=== PATIENT | female | born 1965 | race Caucasian/White ===

== ENCOUNTER → 2016-10-06 | Outpatient (CLI) | payer OTHER ==
[~2016-10-06] VITALS: Ht 167.6 cm; Wt 60.3 kg
[~2016-10-06] MED LIST: CELEBREX 200 M200 MG PO; CENTRUM TABLET1 TAB PO; CIPROFLOXACIN500 M3 PO; CRANBERRY 4001 EAC1 PO; GABAPENTIN100 MG PO; HYDROCODON-ACE1 EAC5 PO; KRILL OIL 1,001 EAC1 PO; LEVSIN SL; MULTIVITAMINS PO; OXYCODONE-APAP1 EAC6 PO; PERCOCET 5-3251 EACH PO; PROZAC20 MG PO; TRAMADOL 50 MG50 MG PO; VICODIN 5-5001 EACH PO; [UNRECOGNIZED DRUG - OTHER] PO
--- NOTE | ~2016-10-06 | HPC ---
[facility] [place] [address] [place] [address] PAIN MANAGEMENT CONSULTATION Name: AMAURY OWENS Room #: REG [facility].#: [id number] Admission: 10/06/16 Attend Phys: Amilcar Soares MD Discharge: Date of : 61 Report #: [id number] THIS REPORT FOR: //name// CC: Levon Soares DATE OF REGISTRATION: 10/06/2016. Followup visit for L3-L4 lumbar radiculopathy. HISTORY OF PRESENT ILLNESS: The patient returns to pain clinic today and would like another epidural injection. It has been almost now 10 months since her last injection performed with a transforaminal approach. She generally gets good relief and use this as a tool to help with chronic leg pain on the left. Pain radiates from her back to her groin down in the left anterior thigh and at times as far as the foot following L4 distribution. Most pain follows L3 where she has a degenerative disk. In addition to that intermittent injection provided with medication under terms of an opioid agreement. Her medication is oxycodone 7.5/325, which she has been on 1 tablet 3 times a day as needed for severe pain for many years under terms of our written agreement. I have reviewed the important issues regarding these opioids on multiple occasions and today we discussed them briefly again. Pain today is a 2, but on times can be as high as 8-9/10. MEDICATIONS: Include oxycodone, calcium, fluoxetine, multivitamins, Krill oil. ALLERGIES: SHE HAS SLIGHT ALLERGY TO IODINATED CONTRAST MATERIAL NOT LISTED THAT WE USED IT ON EVERY INJECTION. SHE DOES NOT LIKE THE FEELING OF MORPHINE. PAST MEDICAL HISTORY: Remarkable kidney stones. PHYSICAL EXAMINATION: GENERAL: She is a 51-year-old pleasant, alert and oriented, without signs of overmedication, disorient or depression. EXTREMITIES: She moves from sitting to standing position, ambulates without difficulty. Positive straight leg raising is noted at the left involving the L3-L4 distribution. Sensation is diminished in that location as well. There was no focal weakness. IMPRESSION: Lumbar radiculopathy, L3-L4. DIAGNOSIS: Lumbar radiculopathy on the left L3-L4. PROCEDURE: L3-L4 transforaminal epidural injection under fluoroscopic guidance. [address] [address] PAIN MANAGEMENT CONSULTATION Name: AMAURY OWENS Room #: REG [facility] [place]#: [id number] Admission: 10/06/16 Attend Phys: Amilcar Soares MD Discharge: Date of : 61 Report #: [id number] PROCEDURE IN DETAIL: She was taken to the fluoroscopic suite. She was placed prone, skin prepped with ChloraPrep, skin anesthetized over the L3-L4 neural foramen. Using triplanar fluoroscopic views, I advanced the needle into the neural foramen. After negative aspiration, I injected gently 1 mL of Omnipaque with good spread of dye observed into the neural foramen along the L3 nerve root was followed by 3 mL of 1% lidocaine mixed with 80 mg of triamcinolone. She tolerated the procedure well and was observed for 45 minutes and discharged. Followup visit planned as needed. Before she was discharged, I also provided her with 3 months of medications, oxycodone 7.5/325 one tablet t.i.d. as needed #90 tablets. Her opioid contract was reviewed. Followup visit is scheduled in 3 months. By: [id number] Amilcar Soares MD /nt
[2016-10-06 08:06] VITALS: BP 127/76
== END ==
LOC: PAIN 09-16 10:35
DX: M54.16 Radiculopathy, lumbar region (principal)

== ENCOUNTER → 2017-01-05 | Outpatient (CLI) | payer OTHER ==
[~2017-01-05] VITALS: Ht 165.1 cm; Wt 62.0 kg
--- NOTE | ~2017-01-05 | HPC ---
[facility] [place] [address] PAIN MANAGEMENT CONSULTATION Name: AMAURY OWENS Room #: REG [facility].#: [id number] Admission: 01/05/17 Attend Phys: Amilcar Soares MD Discharge: Date of : 61 Report #: [id number] THIS REPORT FOR: //name// CC: Levon Soares DATE OF SERVICE: 01/05/2017 Followup visit for chronic low back pain with radiculopathy. The patient is here in clinic today for renewal of her medication. We are going to hold off on an injection at this time. She is taking oxycodone 7.5 mg 3 times daily and has been on an opioid agreement through our clinic for nearly a decade. She has never shown any signs of addiction. She is grateful for the pain relief that she receives from her injections and from her medication. She is, however, becoming a little frustrated with the fact that her pain interferes with some of activities of daily living. She is able to work, but things such as playing with her children, getting out for a long walk are definitely harder. Her underlying pain may be related to synovial cyst or to neural foraminal stenosis. We have not done an MRI in some time and we talked about repeating that today. Other treatment options exists, which include surgical decompression. If there is a fixed lesion, a new MRI would be necessary to identify that. We have also talked about spinal cord stimulation on several occasions. She would like in the fall to consider further diagnostic workup and I have given her information once again on spinal cord stimulation. Urine drug screen was performed within the last 18 months and was appropriate for medications prescribed. PHYSICAL EXAMINATION: She is a sammi 51-year-old pleasant, alert and oriented, without signs of depression, anxiety or overmedication. She appears fit. She moves easily from sitting to standing position. She ambulates without antalgic features. Blood pressure is 105/72, heart rate is 82, her BMI is 22.7. Mild tenderness across her back and leg raising is positive on the left leg that follows an L3-L4 distribution. IMPRESSION: Lumbar radiculopathy. RECOMMENDATION: Continue medications under terms of our agreement. [facility] [address] [place] [address] PAIN MANAGEMENT CONSULTATION Name: AMAURY OWENS Room #: REG [facility].#: [id number] Admission: 01/05/17 Attend Phys: Amilcar Soares MD Discharge: Date of : 61 Report #: [id number] of safeguarding all medications was once again stressed and we reviewed the opioid crisis in [place] and difference between addiction and dependence. By: [id number] Amilcar Soares MD /nt
[2017-01-05 14:20] VITALS: BP 105/72
== END ==
LOC: PAIN 07:27
DX: M54.16 Radiculopathy, lumbar region (principal)

== ENCOUNTER → 2017-04-06 | Outpatient (CLI) | payer OTHER ==
[~2017-04-06] VITALS: Ht 162.6 cm; Wt 62.1 kg
--- NOTE | ~2017-04-06 | HPC ---
[facility] [address] [place] [address] PAIN MANAGEMENT CONSULTATION Name: AMAURY OWENS Room #: REG [facility]#: [id number] Admission: 04/06/17 Attend Phys: Amilcar Soares MD Discharge: Date of : 61 Report #: [id number] THIS REPORT FOR: //name// CC: Carmine Soares DATE OF SERVICE: 04/06/2017 Followup visit for left lumbar radiculopathy. The patient returns to Pain Clinic today for another epidural injection and renewal of pain medication. Her MRI is not terrible, but she has degenerative disk disease at L4-L5 and L3-L4 and periodically the radiculopathy becomes so severe that she needs an epidural injection. She has been managing her pain very effectively with a small amount of oxycodone 7.5/325 taken under terms of written opioid agreement. She has had buccal and urine drug screens that show the appropriate use of medication. She understands the importance of safeguarding all medications. She denies any side effects. 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 Today, she reports her pain intensity levels is about a 6 at its most intense and it is 4 today. Pain is worse with standing and walking and it radiates down into the left leg in the L4 and L3 distribution. She describes this as an electrical burning sensation. PHYSICAL EXAMINATION: She is pleasant, attractive 52-year-old pleasant, alert and oriented, moves easily from sitting to standing position, ambulates; however, with antalgic features. Pain is located in the left buttock and radiating down the leg as she walks. Blood pressure is 126/80, heart rate 67, respirations 14 and BMI is 23.5. She has tenderness across the low back. There is some asymmetry in the reflexes tested today. Left patellar reflex is diminished in comparison to the right. Straight leg raising reproduces pain into the L4 distribution as much as the L3 today. IMPRESSION: Lumbar radiculopathy, L3-L4. PROCEDURE: Left L4-L5 transforaminal epidural injection under fluoroscopic guidance. PROCEDURE: She was taken to the fluoroscopic suite for treatment. She was placed prone and skin prepped with ChloraPrep. Skin anesthetized over the L4-L5 neural foramen. Using triplanar fluoroscopic views, I advanced the needle nicely into the neural foramen and 0.25 mL of Omnipaque was injected to [facility] [address] [place] [address] PAIN MANAGEMENT CONSULTATION Name: AMAURY OWENS Room #: REG [facility]#: [id number] Admission: 04/06/17 Attend Phys: Amilcar Soares MD Discharge: Date of : 61 Report #: [id number] demonstrate spread nicely into the epidural space. This was followed then by 3 mL of 1% lidocaine mixed with 80 mg of triamcinolone. She tolerated the procedure well and was taken to recovery room for observation and followup visit as planned on an as needed basis. Medications provided under terms of the agreement are oxycodone/acetaminophen 7.5/325 #90, one tablet t.i.d. as needed for pain. Renewal prescriptions provided at 4 and 8 weeks. By: [id number] Amilcar Soares MD /nt
[2017-04-06 14:22] VITALS: BP 126/80
== END | disposition home or self-care (01) ==
LOC: PAIN 07:59
DX: M54.16 Radiculopathy, lumbar region (principal); G89.29 Other chronic pain; Z79.891 Long term (current) use of opiate analgesic; Z88.6 Allergy status to analgesic agent; Z91.041 Radiographic dye allergy status

== ENCOUNTER → 2017-06-29 | Outpatient (CLI) | payer OTHER ==
[~2017-06-29] VITALS: Ht 162.6 cm; Wt 61.6 kg
--- NOTE | ~2017-06-29 | HPC ---
[facility] [place] [address] PAIN MANAGEMENT CONSULTATION Name: AMAURY OWENS Room #: REG [facility].#: [id number] Admission: 06/29/17 Attend Phys: Amilcar Soares MD Discharge: Date of : 61 Report #: [id number] THIS REPORT FOR: //name// CC: Carmine Soares DATE OF SERVICE: 06/29/2017 Follow up visit for low back pain with radiculopathy. The patient returns to Pain Clinic today for a quick visit. She is doing okay, although her functional scores are pretty high. Her pain interferes with mood, 8/10; interferes with enjoyment of life at 7-8/10 and relationships with others at 7-8/10. Her total impacted pain score is 46/70, which is really quite high. She says she would like to manage every day and increase her activities and do enjoyable activities. She is leaving today to go see one of her grandchildren play basketball in [place]. 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 She is at low risk of addiction. MEDICATIONS: Reviewed and reconciled. She uses oxycodone 7.5/325 three times daily to help manage low back pain and radiculopathy and has periodic epidural injections. I made her remember her MME today and a morphine milligram equivalent for her is roughly 30. Plan is for her to follow up in our Pain Clinic again in 3 months. I have released her prescriptions. Recent screening was performed within the last 18 months and we will continue to monitor carefully. She understands our opioid agreement and understands the importance of safeguarding medications. Follow up visit planned in 3 months. <ELECTRONICALLY SIGNED> By: Amilcar Soares MD 07/19/17 [id number] Amilcar Soares MD /nt
[2017-06-29 14:10] VITALS: BP 115/73
== END ==
LOC: PAIN 06:57
DX: M54.16 Radiculopathy, lumbar region (principal)

== ENCOUNTER → 2017-09-25 | Outpatient (CLI) | payer OTHER ==
[~2017-09-25] VITALS: Ht 165.1 cm; Wt 59.4 kg
--- NOTE | ~2017-09-25 | HPC ---
[facility] [place] [address] PAIN MANAGEMENT CONSULTATION Name: AMAURY OWENS Room #: REG [facility].#: [id number] Admission: 09/25/17 Attend Phys: Amilcar Soares MD Discharge: Date of : 61 Report #: [id number] THIS REPORT FOR: //name// CC: Carmine Soares DATE OF SERVICE: 09/25/2017 Followup visit for chronic low back pain with radiculopathy. The patient returns today for renewal of medication. She was last seen in June. She remains on a stable dose of oxycodone 7.5/325 three tablets a day. She works at a very long stressful job at the [employer]. She definitely notices an increase in her pain with her stress. She remains fit and is active in wellness activities including walking and proper diet. She denies use of tobacco or alcohol. She does her best to avoid stressful situations where she can, so I think she is working hard to try and manage her pain with nonmedicinal activities. Her goals are to enjoy activities daily without thinking about her constant leg pain. PHYSICAL EXAMINATION: GENERAL: Pleasant attractive female. VITAL SIGNS: Blood pressure is 126/75, heart rate 78. BMI is 21.8. She has positive straight leg raising on the left consistent with radiculopathy in the distribution of L3-L4. IMPRESSION: Lumbar radiculopathy. RECOMMENDATIONS: Another discussion today about spinal cord stimulation. Timing on that for her is the lopez. I am glad we waited to this point if the technology continues to improve with MRI safe devices much smaller easier to charge IPG and improvements and positioning and other aspects related to placement of leads. Plan to see her back in the pain clinic in 3 months. For now, she is going to forego any further interventional treatments until necessary. By: [id number] Amilcar Soares MD /nt
[2017-09-25 13:55] VITALS: BP 126/75
== END ==
LOC: PAIN 06:54
DX: M54.16 Radiculopathy, lumbar region (principal)

== ENCOUNTER → 2017-12-21 | Outpatient (CLI) | payer OTHER ==
[~2017-12-21] VITALS: Ht 165.1 cm; Wt 60.2 kg
--- NOTE | ~2017-12-21 | HPC ---
[facility] [address] [place] [address] PAIN MANAGEMENT CONSULTATION Name: AMAURY OWENS Room #: REG [facility].#: [id number] Admission: 12/21/17 Attend Phys: Amilcar Soares MD Discharge: Date of : 61 Report #: [id number] THIS REPORT FOR: //name// CC: URSULA Soares DATE OF SERVICE: 12/21/2017 Followup visit for lumbar radiculopathy, left L3-L4 distribution. The patient is here today, getting ready to go on vacation, and she wants an epidural injection. I have been providing with intermittent injections relatively infrequently dating back almost 12 years. Her pain responds nicely to a transforaminal injection at the L3-L4 transforaminal approach. She reports that the pain intensity is variable and depends lot on activity. She and her go to [place], they would be riding horses. This can sometimes exacerbate her pain. She is hopeful that the pain relief, which she received from the epidural will allow her to have a much better vacation. Well-deserved. 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 I provided with medications in terms of written opioid agreement. She takes oxycodone 7.5/325 three times a day and tramadol 3 times a day as well, as needed for severe pain. She tries to use the lowest effective dose. With the pain control is good, she is able to shorten her medications. Her last prescriptions were provided on 09/25/2017. I will renew them today under terms of our agreement. She safeguards medications carefully as she should do to prevent risk of diversion. We talked a lot about the role that the patient's physicians, pharmaceutical companies have played in development of the opioid crisis in [place]. She is attentive to this. PHYSICAL EXAMINATION: She is pleasant, alert and oriented without any signs of depression, anxiety or overmedication. She is very fit with a BMI of 22.1. Blood pressure is 106/70, heart rate 78, respirations 18. She walks with a slight antalgic gait. She has some pain with forward flexion and extension. She has straight leg raising discomfort on the left in the L3-L4 distribution. IMPRESSION: Chronic low back pain with radiculopathy, has been very responsive to infrequent, but helpful epidural injections using an L3-L4 transforaminal approach. PROCEDURE: Epidural steroid injection, transforaminal approach and renewal of medication under terms of our agreement. DESCRIPTION OF PROCEDURE: She was taken to fluoroscopic suite, placed prone, [place] [address] PAIN MANAGEMENT CONSULTATION Name: AMAURY OWENS [id number] Admission: 12/21/17 Attend Phys: Amilcar Soares MD Discharge: Date of : 61 Report #: [id number] skin prepped with ChloraPrep. Skin anesthetized with left L4-L5 neural foramen. Using triplanar fluoroscopic guidance, the needle was advanced into the position and 1 mL of Omnipaque was well inside the epidural space with good spread. It was followed then by 3 mL of 0.5% lidocaine mixed with 80 mg triamcinolone. She tolerated the procedure well and was observed for 45 minutes and discharged. Followup visit planned as needed in 3-4 months for medication management and epidural injections as necessary. This is her second epidural injection in this calendar year. By: [id number] Amilcar Soares MD /nt
[2017-12-21 13:50] VITALS: BP 106/70
== END | disposition home or self-care (01) ==
LOC: PAIN 06:41
DX: M54.16 Radiculopathy, lumbar region (principal); G89.29 Other chronic pain

== ENCOUNTER → 2018-03-19 | Outpatient (CLI) | payer OTHER ==
[~2018-03-19] VITALS: Ht 165.1 cm; Wt 60.1 kg
--- NOTE | ~2018-03-19 | HPC ---
[facility] [place] [address] PAIN MANAGEMENT CONSULTATION Name: AMAURY OWENS Room #: REG [facility].#: [id number] Admission: 03/19/18 Attend Phys: Amilcar Soares MD Discharge: Date of : 61 Report #: [id number] THIS REPORT FOR: //name// CC: Carmine Soares REASON FOR CONSULTATION: Followup for lumbar radiculopathy on the left L3-L4 distribution, chronic, management of long-term low dose opioid therapy. HISTORY OF PRESENT ILLNESS: The patient is a longstanding patient of our clinic who has managed her lumbar radicular pain conservatively with intermittent injections and medication for over a decade. 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 Her impact pain scores have been modified by her medication favorably. She is at low risk for any sort of addiction. She has been stable and her dose of medication. She uses oxycodone 7.5 three times daily and typically uses 3 doses every day. In the past, she has also used tramadol to supplement, but uses this less frequently. She denies side effects. She feels that the medications have played a huge role in allowing her to continue working and remain functional. She is fortunate at this point at age of 53, she is able to retire. She has worked hard. She would like to spend more time with family and grandchildren. I think this is an excellent opportunity for her and I support her move. PHYSICAL EXAMINATION: GENERAL: Today, she is attractive, well dressed, well groomed. VITAL SIGNS: 5 feet 5, 132, BMI of 22.0. VITAL SIGNS: Blood pressure 117/63, heart rate 75, respirations 16. Pain intensity is 6/10. She walks easily without antalgic features. IMPRESSION: Chronic intractable low back pain. She has had chronic radicular symptoms, which have been well managed with her opioid medication. Her current MME is around 30. She understands all of the important issues of safeguarding medication, as this has been reinforced at each visit as we did today, particularly with younger family members in the home. She will do so. I plan to continue seeing her under terms of our agreement roughly every 3 months. Injections will be performed at her discretion and need. They have always been helpful when needed. By: [id number] Amilcar Soares MD /nt
[2018-03-19 09:47] VITALS: BP 117/63
== END ==
LOC: PAIN 08:07
DX: G89.29 Other chronic pain (principal); M79.672 Pain in left foot; R10.32 Left lower quadrant pain; M19.90 Unspecified osteoarthritis, unspecified site; Z79.899 Other long term (current) drug therapy; Z79.891 Long term (current) use of opiate analgesic

== ENCOUNTER → 2018-06-11 | Outpatient (CLI) | payer OTHER ==
[~2018-06-11] VITALS: Ht 165.1 cm; Wt 61.5 kg
--- NOTE | ~2018-06-11 | HPC ---
[facility] [place] [address] PAIN MANAGEMENT CONSULTATION Name: AMAURY OWENS Room #: REG [facility].#: [id number] Admission: 06/11/18 Attend Phys: Amilcar Soares MD Discharge: Date of : 61 Report #: [id number] THIS REPORT FOR: //name// CC: Carmine Soares DATE OF SERVICE: 06/11/2018 CHIEF COMPLAINT: Followup visit for chronic lumbar radiculopathy and medication management. HISTORY OF PRESENT ILLNESS: The patient is here today for renewal of pain medication. She has been on longstanding opioid agreement and is grateful for the pain relief that it provides. She takes oxycodone 7.5/325 three times a day for a total of 22.5 mg of oxycodone or roughly 35 morphine milligram equivalents. She has had no misuse or abuse events. No red flags on the chart. I have checked her [employer] information. She fills her medications in [place]. There have been no unexpected entries on the [employer] prescription drug monitoring program. She is a bit anxious. She has 2 upcoming events for family members. Her is hospitalized with an infection following prostate biopsies. He is febrile in the hospital with a temperature of 103 and bacteremic. Her son-in-law at the age of 38 is going to undergo heart surgery for the fourth time in his life, he has born with congenital abnormalities. These both increased some stress for her. Overall, though she controlled her pain well with medication and activities. She says without the pain medication to help, she would not be able to exercise and keep fit. This is one of the main goals of providing medication so that she can continue to help manage her day-to-day activities more effectively with less discomfort. She is at low risk for addiction by the opioid risk tool. PHYSICAL EXAMINATION: VITAL SIGNS: Attractive 53-year-old, blood pressure 131/90, heart rate 79, 5 feet 5 inches, 135 pounds, BMI is 22.6. MUSCULOSKELETAL: She moves easily and ambulates with mild discomfort. She has straight leg raising discomfort on the left consistent with an L3 radiculopathy. IMPRESSION: Chronic low back pain with L3 radicular pain. RECOMMENDATIONS: Renew medication under terms of written agreement. She will safeguard her medications as discussed in each visit[place] [address] PAIN MANAGEMENT CONSULTATION Name: AMAURY OWENS Room #: REG [facility]#: [id number] Admission: 06/11/18 Attend Phys: Amilcar Soares MD Discharge: Date of : 61 Report #: [id number] medication were provided. A urine drug testing will be performed in the future at my discretion. By: [id number] Amilcar Soares MD /nt
[2018-06-11 09:46] VITALS: BP 131/90
--- NOTE | 2018-06-11 10:07 | NUR ---
Pain Clinic Assessment: 1. History of Osteoarthritis: YES History of Rheumatoid Arthritis: NO 2. Height: 5 ft. 5 in. 165.1 cm. Weight: 135.6 lb. oz. 61.508 kg. Patient's BMI: 22.6 3. Vital Signs: BP: 131/90 Pulse: 79 Resp: 14 Temp: 02 Sat: 100 ECG Mon: 4. Pain Intensity: 3 5. Fall Risk: Dizziness: N Needs help standing or walking: N Fallen in the last 3 months: N Fall risk comments: 6. Patient on Blood Thinner: None 7. History of Hypertension: N 8. Opioid Therapy greater than 6 weeks: Y Opiate Contract Signed: 12/14/15 9. Risk Assessment Tool Provided: LOW RISK 05/24 10. Functional Assessment Tool: 11. Recreational Drug Use: Never Drug Type: Tobacco Use: Never Smoker Tobacco Type: Amount or Packs/day: How Many Years: Alcohol Use: No Frequency: Quant:
== END ==
LOC: PAIN 07:12
DX: M54.16 Radiculopathy, lumbar region (principal); G89.29 Other chronic pain

== ENCOUNTER → 2018-09-13 | Outpatient (CLI) | payer OTHER ==
[~2018-09-13] VITALS: Ht 165.1 cm; Wt 61.3 kg
--- NOTE | ~2018-09-13 | HPC ---
[facility] [place] [address] PAIN MANAGEMENT CONSULTATION Name: AMAURY OWENS Room #: REG [facility].#: [id number] Admission: 09/13/18 ������������������ Attend Phys: Amilcar Soares MD Discharge: ������������������ Date of : 61 Report #: [id number] THIS REPORT FOR: //name// CC: Carmine Soares DATE OF SERVICE: 09/13/2018 Followup visit for chronic low back pain with radiculopathy, left L3-L4 distribution. The patient returns to the pain clinic today with significant increase in pain radiating down her left leg. She has responded favorably to epidural injections performed intermittently over a number of years. Maximum number of injections per year has been roughly 3. She is here today for repeat injection. Pain score is an 8/10. It is worse with standing and weightbearing. With a sitting position with her leg in extension, she scores her pain at 5. She is 5 feet 5 inches and 135 pounds. BMI is 22.5. She has positive straight leg raising on the left. No sensation loss is noted. She has an antalgic gait, but there is no weakness. She is not a fall risk. IMPRESSION: Chronic low back pain with radiculopathy L3 distribution. RECOMMENDATIONS: Repeat left L3-L4 transforaminal epidural injection under fluoroscopic guidance. PROCEDURE: She was taken to fluoroscopic suite for the procedure, placed prone, skin prepped with ChloraPrep. Skin was anesthetized over the L3-L4 neural foramen. Using triplanar fluoroscopic views, I advanced the needle into the neural foramen. No blood or CSF was aspirated. 1 mL containing half Omnipaque and half 1% lidocaine was injected and good epidurogram achieved. It was then followed by 3 mL of 0.5% lidocaine and 80 mg of triamcinolone. She tolerated the procedure well. She was observed for 45 minutes and discharged. Follow up as needed. ��������������������������������������������� ���������������������������������������� By: ��������������������������������������������� [id number] Amilcar Soares MD /nt
[2018-09-13 14:26] VITALS: BP 106/69
--- NOTE | 2018-09-13 14:48 | NUR ---
Pain Clinic Assessment: 1. History of Osteoarthritis: YES History of Rheumatoid Arthritis: NO 2. Height: 5 ft. 5 in. 165.1 cm. Weight: 135.2 lb. oz. 61.326 kg. Patient's BMI: 22.5 3. Vital Signs: BP: 106/69 Pulse: 76 Resp: 14 Temp: 02 Sat: 100 ECG Mon: 4. Pain Intensity: 5 5. Fall Risk: Dizziness: N Needs help standing or walking: N Fallen in the last 3 months: N Fall risk comments: 6. Patient on Blood Thinner: None 7. History of Hypertension: N 8. Opioid Therapy greater than 6 weeks: Y Opiate Contract Signed: 12/14/15 9. Risk Assessment Tool Provided: LOW RISK 05/24 10. Functional Assessment Tool: 11. Recreational Drug Use: Never Drug Type: Tobacco Use: Never Smoker Tobacco Type: Amount or Packs/day: How Many Years: Alcohol Use: No Frequency: Quant:
== END | disposition home or self-care (01) ==
LOC: PAIN 07:14
DX: M54.16 Radiculopathy, lumbar region (principal); G89.29 Other chronic pain; Z91.041 Radiographic dye allergy status; Z88.8 Allergy status to other drugs, medicaments and biological substances; Z79.899 Other long term (current) drug therapy; Z79.891 Long term (current) use of opiate analgesic

== ENCOUNTER → 2018-12-06 | Outpatient (CLI) | payer OTHER ==
[~2018-12-06] VITALS: Ht 165.1 cm; Wt 61.5 kg
[2018-12-06 13:17] VITALS: BP 119/70
--- NOTE | 2018-12-06 13:24 | NUR ---
Pain Clinic Assessment: 1. History of Osteoarthritis: YES History of Rheumatoid Arthritis: NO 2. Height: 5 ft. 5 in. 165.1 cm. Weight: 135.6 lb. oz. 61.508 kg. Patient's BMI: 22.6 3. Vital Signs: BP: 119/70 Pulse: 80 Resp: 14 Temp: 02 Sat: 100 ECG Mon: 4. Pain Intensity: 3 5. Fall Risk: Dizziness: N Needs help standing or walking: N Fallen in the last 3 months: N Fall risk comments: 6. Patient on Blood Thinner: None 7. History of Hypertension: N 8. Opioid Therapy greater than 6 weeks: Y Opiate Contract Signed: 12/14/15 9. Risk Assessment Tool Provided: LOW RISK 05/24 10. Functional Assessment Tool: 11. Recreational Drug Use: Never Drug Type: Tobacco Use: Never Smoker Tobacco Type: Amount or Packs/day: How Many Years: Alcohol Use: No Frequency: Quant:
--- NOTE | 2018-12-07 08:22 | HPC ---
[facility] [address] [address] PAIN MANAGEMENT CONSULTATION Name: AMAURY OWENS Room #: REG [facility].#: [id number] Admission: 12/06/18 ������������������ Attend Phys: Teri Ventura Discharge: ������������������ Date of : 61 Report #: [id number] THIS REPORT FOR: //name// CC: Teri Lackey Levon Donahue DATE OF SERVICE: 12/06/2018 CHIEF COMPLAINT: Low back pain with radiculopathy. HISTORY OF PRESENT ILLNESS: This is a very pleasant 53-year-old female, who returns to the pain clinic today for medication that she uses to treat her ongoing low back pain, left groin and left foot pain. She tells me that the lumbar steroid injection that Dr. Soares performed on her in August was very beneficial with at least 80% relief, but only lasted a few weeks; she thinks this may be part of the reason that she had to travel to [place] on vacation and had done lots of walking. She tells me that they are beneficial as well as her medications in controlling her pain, but unfortunately it was short-lived. The patient tells me her pain score is a 3/10 today in her left groin and low back with radiation down to her foot of the left leg of a 3/10, it is worse with prolonged standing and walking as well as sitting in the car. Her medications are very helpful. She denies any problems with constipation and would just like a refill of her oxycodone today. ALLERGIES: IV DYE and MORPHINE. CURRENT LIST OF MEDICATIONS: Oxycodone 7.5/325 two-three times a day p.r.n., Krill oil, cranberry caplets, Prozac 20 mg and multivitamin. THE PATIENT'S PQRS: 1. The patient has a history of osteoarthritis in her lumbar spine. Denies any rheumatoid arthritis. 2. Height is 5 feet 5 inches, weight is 135, BMI is 22. 3. Vital signs; blood pressure 119/70, pulse is 80, respirations 14, oxygen sat is 100. 4. Pain score is 3/10. 5. Denies dizziness, does not need help walking or standing, has not fallen in the last 3 months. 6. The patient is not on any blood thinners, does not take medicine for hypertension. 7. Opioid therapy is greater than 6 weeks; therefore, an opioid signed contract is on the chart. Her risk assessment tool is low. Functional assessment is 34/70. 8. Recreational drug use, she denies. She is not a [place] [id number] PAIN MANAGEMENT CONSULTATION Name: AMAURY OWENS [id number] Admission: 12/06/18 ������������������ Attend Phys: Teri Ventura Discharge: ������������������ Date of : 61 Report #: [id number] alcohol. We did check the prescription monitoring system. The patient is due for her medications to be filled today. She fills them in a timely fashion and safeguards her medications. There is a drug screen in the past on the chart and we will recheck this at her next visit. PHYSICAL EXAMINATION: GENERAL: This is a well-developed, well-nourished 53-year-old female, who appears younger than her stated age, placing her current pain score at 3/10 today. She is alert and orientated. HEENT: Normocephalic, atraumatic. Extraocular eye muscles are intact. Mucous membranes are moist. MUSCULOSKELETAL: She moves easily from sitting to standing, ambulates with mild discomfort and has a slightly antalgic gait when she walks. She has straight leg raising that causes her discomfort in her left leg following the L3-L4 dermatomal distribution. Her lower extremity strength judged to be 5/5 in all major muscle groups bilaterally in her lower extremities. We reviewed the fact that opiate medications are being used to provide analgesia adequate to support activities of daily living, not attempting to achieve a specific pain score on the 0-10 Visual Analog Scale. The current opiate medications are providing sufficient analgesia to allow the patient to participate in activities of daily living. The patient is not exhibiting any aberrant behavior suggestive of drug diversion. The patient is not having any adverse reactions to medications. The patient is not suffering from daytime somnolence or mental acuity changes. The patient is managing opiate-induced constipation with appropriate xesh-oei-ordtwnd agents and dietary considerations. The patient was counseled on concern for caution with operating a motor vehicle while using opiate medications. A physical exam was performed and the patient's functional status was evaluated. All patients with back pain were advised against the bed rest greater than 4 days and were advised to return to normal activities. Pain score assessment was noted and the treatment plan was reviewed with the patient. All current medications, both prescribed and OTC were reviewed and reconciled on the electronic medical record. Tobacco screening was accomplished and smoking cessation was advised when indicated. BMI was noted and diet/exercise modification was recommended for all patients following outside normal parameters. I reviewed with the patient today their responsibilities to safeguard prescription medications, reviewed their responsibility to utilize medications only as prescribed by the physician. They are to seek and receive pain medications only from 1 physician group ([facility]). They are to use 1 pharmacy and keep the clinic informed if they change pharmacies. Their [address] [address] PAIN MANAGEMENT CONSULTATION Name: AMAURY OWENS Room #: REG [facility]#: [id number] Admission: 12/06/18 ������������������ Attend Phys: Teri Ventura Discharge: ������������������ Date of : 61 Report #: [id number] responsibilities include making followup visits in a timely fashion and to avoid abrupt discontinuation of medication usage. Their responsibilities further include bringing their medications (bottles from the pharmacy with residual pills) to the visit for possible confirmation of pill counts and the patient understands it is their responsibility to submit to random drug screens to ensure both that the medications prescribed are present, and that no other controlled substances are present. All prescriptions provided today were generated electronically. IMPRESSION: 1. Chronic low back pain with L3 radicular pain. 2. Management of complex medications under terms of written opioid agreement. PLAN: 1. We discussed treatment options with the patient today. The patient feels that the oxycodone is very beneficial. Scripts given for oxycodone 7.5/325, #90 for today for an 8-week release, this places the patient at 33 morphine mEq which is under the CDC guidelines; therefore, she is seen every 3 months for medication management. 2. The patient will call for an appointment if she feels like she needs another injection from Dr. Amilcar Soares, the last one was in August, usually she spaces these every 3-4 months. 3. The patient is seen today in collaboration with Dr. Amilcar Soares. ��������������������������������������������� <ELECTRONICALLY SIGNED> ���������������������������������������� By: Teri Ventura ��������������������������������������������� 12/07/18 0822 [id number] Teri rousseau
== END ==
LOC: PAIN 12:55
DX: M54.16 Radiculopathy, lumbar region (principal); M54.5 Low back pain; G89.29 Other chronic pain; Z79.891 Long term (current) use of opiate analgesic

== ENCOUNTER → 2019-02-26 | Outpatient (CLI) | payer OTHER ==
[~2019-02-26] VITALS: Ht 165.1 cm; Wt 61.5 kg
[~2019-02-26] MED LIST changes: +CYMBALTA30 MG PO; +PERCOCET 7.5-31 EAC1 PO; +PERCOCET 7.5-31 EACH PO
[2019-02-26 11:34] VITALS: BP 118/76
--- NOTE | 2019-02-26 11:41 | NUR ---
Pain Clinic Assessment: 1. History of Osteoarthritis: YES History of Rheumatoid Arthritis: NO 2. Height: 5 ft. 5 in. 165.1 cm. Weight: 135.6 lb. oz. 61.508 kg. Patient's BMI: 22.6 3. Vital Signs: BP: 118/76 Pulse: 71 Resp: 16 Temp: 02 Sat: 100 ECG Mon: 4. Pain Intensity: 2-3 5. Fall Risk: Dizziness: N Needs help standing or walking: N Fallen in the last 3 months: N Fall risk comments: 6. Patient on Blood Thinner: None 7. History of Hypertension: N 8. Opioid Therapy greater than 6 weeks: Y Opiate Contract Signed: 12/14/15 9. Risk Assessment Tool Provided: LOW RISK 05/24 10. Functional Assessment Tool: 11. Recreational Drug Use: Never Drug Type: Tobacco Use: Never Smoker Tobacco Type: Amount or Packs/day: How Many Years: Alcohol Use: No Frequency: Quant:
--- NOTE | 2019-03-05 08:01 | HPC ---
[facility] [address] [place] [address] PAIN MANAGEMENT CONSULTATION Name: AMAURY OWENS Room #: REG [facility].#: [id number] Admission: 02/26/19 Attend Phys: Carmine Lew DO Discharge: Date of : 61 Report #: [id number] THIS REPORT FOR: //name// CC: MARK Rodriguez MD DATE OF SERVICE: 02/26/2019 REFERRING PHYSICIAN: Carmine Lackey DO. CHIEF COMPLAINT: Low back pain, left lower extremity pain with paresthesias. HISTORY OF PRESENT ILLNESS: As you know, the patient is a very pleasant 54-year-old female who is typically followed by my partner, Dr. Amilcar Soares, treated for lumbar radiculopathy for which the patient has undergone intermittent epidural injections and medication management. She returns today stating pain has progressed. She is now placing pain score at 3/10. She states she has chronic numbness and tingling radiating down the leg. This is a new exacerbation of symptoms for the patient. She has not had the numbness and tingling as she has of late. She denies new injury or trauma that may have led to symptom reoccurrence. She indicates that current medications are not providing long-term benefit. Pain is exacerbated with standing, sitting at home or in a car. She indicates medications and walking as well as repositioning improves pain. She returns today reporting pain that radiates all the way down to the low back to the foot. ALLERGIES: IV CONTRAST AND MORPHINE. CURRENT MEDICATIONS: Percocet 7.5/325 one tab p.o. q. 8 hours p.r.n. for pain, Krill oil 1000 mg once a day, cranberry supplement 400 mg once a day, multivitamin 1 tab per day. SOCIAL HISTORY: The patient denies tobacco, alcohol, IV or illicit drug use. She is unaccompanied at today's visit. IMAGING: There has been no new imaging since 12/31/2009, which showed mild degenerative changes at the L4-L5 level. PHYSICAL EXAMINATION: VITAL SIGNS: Blood pressure 118/76, pulse 71, respiratory rate 16 and unlabored. The patient is 100% on room air. Height 5 feet 11 inches tall, weight 135.6 pounds, BMI calculated 22.6. GENERAL: Well-developed, well-nourished, well-hydrated, 54-year-old female, [address] [address] PAIN MANAGEMENT CONSULTATION Name: AMAURY OWENS Room #: REG [facility]#: [id number] Admission: 02/26/19 Attend Phys: Carmine Lew DO Discharge: Date of : 61 Report #: [id number] appearing her stated age. Pain is rated around 3/10. HEENT: Normocephalic, atraumatic. Pupils equal, round, reactive to light. Extraocular muscles are intact. Sclerae nonicteric without injection. NEUROLOGIC: Cranial nerves 2-12 grossly intact. Speech is fluent. The patient deemed a good historian. EXTREMITIES: Show no clubbing, no cyanosis and no edema. MUSCULOSKELETAL: Lower extremity strength is symmetrical 5/5. Slight giveaway strength noted with hip flexion, knee extension on the left when compared to the right secondary to pain. Seated straight leg raising mildly positive on the left. Supine straight leg raising positive on the left. Wilmer's test is negative. Modified Gaenslen's positive for axial low back pain. Ankle clonus negative. Babinski is negative. Gait mildly antalgic favoring left lower extremity over right. Muscle bulk and tone appears symmetrical in comparing left lower extremity over right. ASSESSMENT: 1. Symptomatic lumbar radiculopathy. 2. Lumbosacral spondylosis with radiculopathy. 3. Chronic intractable pain. PLAN: 1. The patient returns today in followup visit with progressively worsening lumbar radicular symptoms involving the left lower extremity. The patient states her intensity of pain has increased as had the paresthesias. She is quite concerned about this progressing paresthesia that is now radiating from the low back all the way down to the foot. We discussed with the patient the sources of radiculopathy and given the distribution appear to be along the L5 nerve root. We have discussed that the findings of her 2009 imaging showed only minor changes at the L4-L5 level, but this imaging is nearly 10 years old and is of little or no benefit for determination of pathology at present. We did discuss with the patient that ultimately further imaging will be necessary if more conservative treatment options are not beneficial. Due to the fact the patient is seeing less efficacy with the oxycodone and recent injections have been met with minimal improvement, I would be concerned of changes within the lumbar space that may be necessary to be further evaluated. The patient will discuss this with her typical pain physician and her primary care physician. 2. In regards to the neuropathic symptoms, I will recommend initiation of a neuropathic pain medication. These medications would include amitriptyline, nortriptyline, Cymbalta, Lyrica or gabapentin. The patient indicates she has been on gabapentin in the past and this caused significant dysphoric effects of sleepiness, disorientation, confusion and mental slowing. She does not wish to initiate gabapentin, nor does she wish to initiate Lyrica as she could have similar side effects. She is amenable to trial of duloxetine as a possible treatment course. We will make adjustments in her medication today. 3. The patient was provided prescription of duloxetine 30 mg dose 1 tab p.o. at bedtime. She will continue this medication for 7 days. If no improvement in [facility] [address] [place] [address] PAIN MANAGEMENT CONSULTATION Name: AMAURY OWENS Room #: REG [facility]#: [id number] Admission: 02/26/19 Attend Phys: Carmine Lew DO Discharge: Date of : 61 Report #: [id number] symptoms, no side effects of sleepiness, disorientation, confusion, mental slowing, then increase to 60 mg dose. She will then continue the 60 mg dose for another 7 days. If again no improvement in symptoms, no side effects, then increase to 1 tab in the morning, continuing 2 tabs at night or total of 30 mg in morning and 60 mg at night for 7 days. Again if no improvement in symptoms, no side effects, then escalate the dose to 60 mg b.i.d. The patient was advised if anytime during this titration, she notes improvement in symptoms, stabilize at that dose without further escalation. If no improvement in symptoms, continue the titration as directed. If the patient does note side effects at doses greater than 30 mg, she should reduce to the initial dose of 30 mg dose. Continue that for another 7 days, then reattempt escalation assuming no improvement in pain. The patient was provided a prescription of Cymbalta 30 mg dose for a total of #120 to reach the titration goal of 60 mg b.i.d. 4. The patient was provided refill prescription of oxycodone 7.5/325 one tab p.o. q. 8 hours p.r.n. for pain. I have given the patient #90 tablets, releasing today, 4 weeks from today and 8 weeks from today, 3 months' worth of medication. The patient was advised to take the medication as directed. She is not to utilize medication prophylactically. She is denying side effects of sleepiness, disorientation, confusion, mental slowing and constipation with the use of therapy. 5. We reviewed the fact that opiate medications are being used to provide analgesia adequate to support activities of daily living, not attempting to achieve a specific pain score on the 0-10 Visual Analog Scale. The current opiate medications are providing sufficient analgesia to allow the patient to participate in activities of daily living. The patient is not exhibiting any aberrant behavior suggestive of drug diversion. The patient is not having any adverse reactions to medications. The patient is not suffering from daytime somnolence or mental acuity changes. The patient is managing opiate-induced constipation with appropriate fsan-dap-idvvsad agents and dietary considerations. The patient was counseled on concern for caution with operating a motor vehicle while using opiate medications. A physical exam was performed and the patient's functional status was evaluated. All patients with back pain were advised against the bed rest greater than 4 days and were advised to return to normal activities. Pain score assessment was noted and the treatment plan was reviewed with the patient. All current medications, both prescribed and OTC were reviewed and reconciled on the electronic medical record. Tobacco screening was accomplished and smoking cessation was advised when indicated. BMI was noted and diet/exercise modification was recommended for all patients following outside normal parameters. I reviewed with the patient today their responsibilities to safeguard prescription medications, reviewed their responsibility to utilize medications only as prescribed by the physician. They are to seek and receive pain medications only from 1 physician group ([facility]). They are to use 1 [facility] [address] [place] [address] PAIN MANAGEMENT CONSULTATION Name: AMAURY OWENS Room #: REG [facility]#: [id number] Admission: 02/26/19 Attend Phys: Carmine Lew DO Discharge: Date of : 61 Report #: [id number] pharmacy and keep the clinic informed if they change pharmacies. Their responsibilities include making followup visits in a timely fashion and to avoid abrupt discontinuation of medication usage. Their responsibilities further include bringing their medications (bottles from the pharmacy with residual pills) to the visit for possible confirmation of pill counts and the patient understands it is their responsibility to submit to random drug screens to ensure both that the medications prescribed are present, and that no other controlled substances are present. All prescriptions provided today were generated electronically. 6. The patient to follow up with her physician, Dr. Amilcar Soares, as necessary for further evaluation. Otherwise, we will see the patient back in 3 months for opioid therapy. If her pain and symptoms do not improve with changes in medication today, I recommend further evaluation with a new MRI. <ELECTRONICALLY SIGNED> By: Carmine Lew DO 03/05/19 0801 [id number] Carmine Lew DO /nt
== END ==
LOC: PAIN 06:49
DX: M47.27 Other spondylosis with radiculopathy, lumbosacral region (principal); G89.4 Chronic pain syndrome

== ENCOUNTER → 2019-05-28 | Outpatient (CLI) | payer OTHER ==
[~2019-05-28] VITALS: Ht 165.1 cm; Wt 61.3 kg
[2019-05-28 11:12] VITALS: BP 112/76
--- NOTE | 2019-05-28 11:25 | NUR ---
Pain Clinic Assessment: 1. History of Osteoarthritis: YES History of Rheumatoid Arthritis: NO 2. Height: 5 ft. 5 in. 165.1 cm. Weight: 135.2 lb. oz. 61.326 kg. Patient's BMI: 22.5 3. Vital Signs: BP: 112/76 Pulse: 77 Resp: 14 Temp: 02 Sat: 100 ECG Mon: 4. Pain Intensity: 4 5. Fall Risk: Dizziness: N Needs help standing or walking: N Fallen in the last 3 months: Y Fall risk comments: 6. Patient on Blood Thinner: None 7. History of Hypertension: N 8. Opioid Therapy greater than 6 weeks: Y Opiate Contract Signed: 12/14/15 9. Risk Assessment Tool Provided: LOW RISK 05/24 10. Functional Assessment Tool: 11. Recreational Drug Use: Never Drug Type: Tobacco Use: Never Smoker Tobacco Type: Amount or Packs/day: How Many Years: Alcohol Use: No Frequency: Quant:
--- NOTE | 2019-05-29 08:36 | HPC ---
[facility] [address] [place] [address] PAIN MANAGEMENT CONSULTATION Name: AMAURY OWENS Room #: REG [facility].#: [id number] Admission: 05/28/19 Attend Phys: Teri Ventura Discharge: Date of : 61 Report #: [id number] THIS REPORT FOR: //name// CC: Teri HOOVER DO MARK Lackey DATE OF SERVICE: 05/28/2019 CHIEF COMPLAINT: Low back pain, left lower extremity pain and paresthesias. HISTORY OF PRESENT ILLNESS: This is a very pleasant 54-year-old female who returns to the pain clinic today for refill of her oxycodone that she uses to help treat her ongoing lumbar radiculopathy. She reports that she is having some weakness in her left leg as well. Her pain is normally radiates from her back down her left groin into her foot. It is electrical deep numbness. Today, she rates pain score of 4/10. She states that the oxycodone is beneficial. Denies any problems with daytime sleepiness or constipation as a result of this medicine. The patient does tell me that she fell recently while doing chores outside. She is unsure of her foot gave away or if she came down on uneven ground. She said that had never happened before. She does always have numbness in her leg. The epidurals that she gets periodically are beneficial. She is trying to wait 1 year in between injections. We did discuss possibly repeating not sooner. The patient also reports that she is not taking the Cymbalta that Dr. Carmine Lew had started. She had read the side effect profile and is unsure if she wanted to continue that medicine. Today, she would like to have refills of her oxycodone. ALLERGIES: IV CONTRAST AND MORPHINE. CURRENT LIST OF MEDICATIONS: Oxycodone 7.5/325 p.r.n., cranberry caplets and multivitamin. PQRS: 1. She does have arthritic changes in her lumbar spine. Denies any rheumatoid arthritis. 2. Height is 5 feet 5 inches, weight is 135, BMI is 22. 3. Vital signs, blood pressure 112/76, pulse is 77, respirations 14, oxygen sat is 100. 4. Pain score is 4/10. 5. Denies dizziness, does not need help walking or standing, has fallen in the past month. The patient is not on any blood thinners or medicine for [address] [address] PAIN MANAGEMENT CONSULTATION Name: AMAURY OWENS Room #: REG [facility].#: [id number] Admission: 05/28/19 Attend Phys: Teri Ventura Discharge: Date of : 61 Report #: [id number] hypertension. 6. Opioid therapy is greater than 6 weeks; therefore, an opioid signed contract is on the chart. Risk assessment tool is low. Functional assessment is 34/70. 7. Recreational drug use, she denies. She is not a smoker and does not drink alcohol. According to the prescription monitoring system, the patient is filling appropriately for her medications. She is due to fill those medicines today. PHYSICAL EXAMINATION: GENERAL: This is a well-developed, well-nourished and well-hydrated, 54-year-old female who appears her stated age, placing her current pain score at 4/10. HEENT: Normocephalic, atraumatic. Pupils equal, round and reactive to light. Mucous membranes are moist. EXTREMITIES: No clubbing, no cyanosis, no edema. MUSCULOSKELETAL: She has pain that radiates from her lumbar spine down her left leg following the L3-L4 dermatomal distribution. Her lower extremity strength judged to be 5/5 in all major muscle groups. Her gait is mildly antalgic favoring the left over the right. ASSESSMENT: 1. Symptomatic lumbar radiculopathy. 2. Lumbosacral spondylosis with radiculopathy. 3. Chronic intractable pain. 4. Opioid medications under terms of written agreement. We reviewed the fact that opiate medications are being used to provide analgesia adequate to support activities of daily living, not attempting to achieve a specific pain score on the 0-10 Visual Analog Scale. The current opiate medications are providing sufficient analgesia to allow the patient to participate in activities of daily living. The patient is not exhibiting any aberrant behavior suggestive of drug diversion. The patient is not having any adverse reactions to medications. The patient is not suffering from daytime somnolence or mental acuity changes. The patient is managing opiate-induced constipation with appropriate zvbk-ueb-lgeluws agents and dietary considerations. The patient was counseled on concern for caution with operating a motor vehicle while using opiate medications. PLAN: 1. We discussed treatment options with the patient today. The patient reports that she had started the Cymbalta that Dr. Carmine Lew had written for her at her last visit, only taking 30 mg a day. She did not increase to 60 mg since she had read the side effect profile and decided not to continue the medication though she continues to have numbness and tingling in her left leg. We discussed other medications such as gabapentin, Lyrica. The patient had had [facility] [address] [place] [address] PAIN MANAGEMENT CONSULTATION Name: AMAURY OWENS Room #: REG CL Tory#: [id number] Admission: 05/28/19 Attend Phys: Teri Ventura Discharge: Date of : 61 Report #: [id number] significant side effects of gabapentin in the past. I encouraged her to try that duloxetine again and see if that is beneficial in decreasing some of the numbness and tingling that she is experiencing in her left lower extremity. 2. I encouraged the patient that if her symptoms continue to increase having more numbness and tingling in her leg and feels that her pain is increased, she may consider another epidural injection. Her last transforaminal was in August. She was hoping to be able to make it a year. I explained to her that if her symptoms are increasing, she may not be able to wait the full year before her next injection. She does get significant improvement when she has those epidural steroid injections. 3. We will prescribe her oxycodone 7.5/325 t.i.d., #90, for today for an 8-week release. These will be sent to her pharmacy in [place]. According to the CDC guidelines, she is 45 morphine milliequivalents per day. 4. The patient is seen today in collaboration with Dr. Carmine Lew. <ELECTRONICALLY SIGNED> By: Teri Ventura 05/29/19 0836 [id number] Teri Ventura /nt
== END ==
LOC: PAIN 06:58
DX: M47.27 Other spondylosis with radiculopathy, lumbosacral region (principal); G89.4 Chronic pain syndrome; Z79.891 Long term (current) use of opiate analgesic

== ENCOUNTER → 2019-08-15 | Outpatient (CLI) | payer OTHER ==
[~2019-08-15] VITALS: Ht 167.6 cm; Wt 61.6 kg
[2019-08-15 12:31] VITALS: BP 129/75
--- NOTE | 2019-08-15 12:36 | NUR ---
Pain Clinic Assessment: 1. History of Osteoarthritis: YES History of Rheumatoid Arthritis: NO 2. Height: 5 ft. 6 in. 167.6 cm. Weight: 135.8 lb. oz. 61.598 kg. Patient's BMI: 21.9 3. Vital Signs: BP: 129/75 Pulse: 70 Resp: 18 Temp: 02 Sat: 99 ECG Mon: 4. Pain Intensity: 2 5. Fall Risk: Dizziness: N Needs help standing or walking: N Fallen in the last 3 months: N Fall risk comments: 6. Patient on Blood Thinner: None 7. History of Hypertension: N 8. Opioid Therapy greater than 6 weeks: Y Opiate Contract Signed: 12/14/15 9. Risk Assessment Tool Provided: LOW RISK 05/24 10. Functional Assessment Tool: 11. Recreational Drug Use: Never Drug Type: Tobacco Use: Never Smoker Tobacco Type: Amount or Packs/day: How Many Years: Alcohol Use: No Frequency: Quant:
--- NOTE | 2019-08-19 08:15 | HPC ---
[facility] [address] [place] [address] PAIN MANAGEMENT CONSULTATION Name: AMAURY OWENS Room #: REG [facility]..#: [id number] Admission: 08/15/19 Attend Phys: Teri Ventura Discharge: Date of : 61 Report #: [id number] THIS REPORT FOR: cc: Carmine Lackey James L. DO Hocker,Teri ALLRED ~ DATE OF SERVICE: 08/15/2019 CHIEF COMPLAINT: Low back pain, left lower extremity pain and paresthesias. HISTORY OF PRESENT ILLNESS: This is a very pleasant 54-year-old female who returns to the pain clinic today for refill of her medications. Today, she is reporting a pain score of 2/10 where her pain is located in her left groin and leg that radiates to the foot. It is a deep electrical pain at times, worse with standing and prolonged activity. 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 She said yesterday, her pain was very intense. Today, it has subsided back to her, 2/10. She feels that the medication is very beneficial as well as heat. She denies any problems with constipation or daytime sleepiness. ALLERGIES: IV DYE AND MORPHINE. CURRENT LIST OF MEDICATIONS: Oxycodone 7.5/325 p.r.n., calcium, and multivitamin. PQRS: 1. She has arthritic changes in her lumbar spine. Denies any rheumatoid arthritis. 2. Height is 5 feet 6 inches, weight is 135, BMI is 21. 3. Vital signs 129/75, pulse is 70, respirations 18, oxygen sat is 99. 4. Pain score is 2/10. 5. Denies dizziness. Does not need help walking or standing. Has not fallen in the last 3 months. 6. The patient is not on any blood thinners, but does not have a history of hypertension. 7. Opiate therapy is greater than 6 weeks; therefore, an opioid signed contract is on the chart. Risk assessment tool is low. Functional assessment is 34/70. 8. Recreational drug use, she denies. She is not a smoker and does not drink alcohol. According to the prescription monitoring system, the patient is filling appropriately for her medication. She is due to fill next week. Her current morphine mEq per day is 33. PHYSICAL EXAMINATION: [address] [address] PAIN MANAGEMENT CONSULTATION Name: AMAURY OWENS Room #: REG [facility] Duane#: [id number] Admission: 08/15/19 Attend Phys: Teri Ventura Discharge: Date of : 61 Report #: [id number] GENERAL: This is alert and orientated, very pleasant 54-year-old female who appears younger than her stated age, placing her current pain score 2/10 today. HEENT: Normocephalic, atraumatic. Extraocular eye muscles are intact. Mucous membranes are moist. EXTREMITIES: No clubbing, no cyanosis, no edema. MUSCULOSKELETAL: She has pain and tenderness in her lumbar region that radiates down her left leg to her foot following the L3-L4 dermatomal distribution. She has a mildly antalgic gait. Her lower extremity strength judged to be 5/5 in all major muscle groups. ASSESSMENT: 1. Symptomatic lumbar radiculopathy. 2. Lumbosacral spondylosis with radiculopathy. 3. Chronic intractable pain. 4. Opioid medications under terms of written agreement. We reviewed the fact that opiate medications are being used to provide analgesia adequate to support activities of daily living, not attempting to achieve a specific pain score on the 0-10 Visual Analog Scale. The current opiate medications are providing sufficient analgesia to allow the patient to participate in activities of daily living. The patient is not exhibiting any aberrant behavior suggestive of drug diversion. The patient is not having any adverse reactions to medications. The patient is not suffering from daytime somnolence or mental acuity changes. The patient is managing opiate-induced constipation with appropriate gpus-tvl-rnjvxzl agents and dietary considerations. The patient was counseled on concern for caution with operating a motor vehicle while using opiate medications. A physical exam was performed and the patient's functional status was evaluated. All patients with back pain were advised against the bed rest greater than 4 days and were advised to return to normal activities. Pain score assessment was noted and the treatment plan was reviewed with the patient. All current medications, both prescribed and OTC were reviewed and reconciled on the electronic medical record. Tobacco screening was accomplished and smoking cessation was advised when indicated. BMI was noted and diet/exercise modification was recommended for all patients following outside normal parameters. I reviewed with the patient today their responsibilities to safeguard prescription medications, reviewed their responsibility to utilize medications only as prescribed by the physician. They are to seek and receive pain medications only from 1 physician group ( [facility]). They are to use 1 pharmacy and keep the clinic informed if they change pharmacies. Their responsibilities include making followup visits in a timely fashion and to avoid abrupt discontinuation of medication usage. Their responsibilities further include bringing their medications (bottles from the pharmacy with [facility] [address] [place] [address] PAIN MANAGEMENT CONSULTATION Name: AMAURY OWENS Room #: REG [facility]#: [id number] Admission: 08/15/19 Attend Phys: Teri Ventura Discharge: Date of : 61 Report #: [id number] pills) to the visit for possible confirmation of pill counts and the patient understands it is their responsibility to submit to random drug screens to ensure both that the medications prescribed are present, and that no other controlled substances are present. All prescriptions provided today were generated electronically. PLAN: 1. We discussed treatment options with the patient today. The patient finds her medicines very beneficial. We will refill these medicines of oxycodone 7.5/325 t.i.d., #90 for 3 months. They will be sent electronically by Dr. Amilcar Soares. 2. We did discuss the coronavirus crisis, currently right now, we are unsure if it will disrupt the opioid supply chain prescriptions. We encouraged the patient if she is able to take less medications to have a supply at home. We also encouraged her to fill her prescriptions today, though she is not quite out in case something may happen with the supply chain. The patient verbalizes understanding. She will go today to fill her medications. 3. The patient is seen today in collaboration with Dr. Amilcar Soares. I did see the patient as well. <ELECTRONICALLY SIGNED> By: Teri Ventura 08/19/19 0815 [id number] 1535 Teri Ventura /nt
== END ==
LOC: PAIN 06:50
DX: M47.27 Other spondylosis with radiculopathy, lumbosacral region (principal); R20.2 Paresthesia of skin; M79.605 Pain in left leg; M54.16 Radiculopathy, lumbar region; G89.29 Other chronic pain; F11.20 Opioid dependence, uncomplicated; Z88.8 Allergy status to other drugs, medicaments and biological substances; Z79.899 Other long term (current) drug therapy

== ENCOUNTER → 2019-11-05 | Outpatient (CLI) | payer OTHER ==
[~2019-11-05] VITALS: Ht 167.6 cm; Wt 60.5 kg
[~2019-11-05] MED LIST changes: +PROZAC20 M1 PO
[2019-11-05 09:00] VITALS: BP 121/72
--- NOTE | 2019-11-05 09:17 | NUR ---
Pain Clinic Assessment: 1. History of Osteoarthritis: LOWER LUMBAR History of Rheumatoid Arthritis: DENIES 2. Height: 5 ft. 6 in. 167.6 cm. Weight: 133.4 lb. oz. 60.510 kg. Patient's BMI: 21.5 3. Vital Signs: BP: 121/72 Pulse: 75 Resp: 14 Temp: 02 Sat: 100 ECG Mon: 4. Pain Intensity: 3 5. Fall Risk: Dizziness: N Needs help standing or walking: N Fallen in the last 3 months: N Fall risk comments: 6. Patient on Blood Thinner: None 7. History of Hypertension: N 8. Opioid Therapy greater than 6 weeks: Y Opiate Contract Signed: 12/14/15 9. Risk Assessment Tool Provided: LOW RISK 05/24 10. Functional Assessment Tool: 11. Recreational Drug Use: Never Drug Type: Tobacco Use: Never Smoker Tobacco Type: Amount or Packs/day: How Many Years: Alcohol Use: No Frequency: Quant:
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
== END ==
LOC: PAIN 06:54
PROVIDERS: ATTEND Clinical Nurse Specialist Adult Health
DX: M47.27 Other spondylosis with radiculopathy, lumbosacral region (principal); R20.2 Paresthesia of skin; M79.605 Pain in left leg; G89.29 Other chronic pain; F11.20 Opioid dependence, uncomplicated; Z88.8 Allergy status to other drugs, medicaments and biological substances; Z79.899 Other long term (current) drug therapy

== ENCOUNTER → 2020-02-03 | Outpatient (CLI) | payer OTHER ==
[~2020-02-03] VITALS: Ht 167.6 cm; Wt 58.9 kg
[2020-02-03 09:55] VITALS: BP 128/83
--- NOTE | 2020-02-03 10:01 | NUR ---
Pain Clinic Assessment: 1. History of Osteoarthritis: LOWER LUMBAR History of Rheumatoid Arthritis: DENIES 2. Height: 5 ft. 6 in. 167.6 cm. Weight: 129.8 lb. oz. 58.877 kg. Patient's BMI: 21.0 3. Vital Signs: BP: 128/83 Pulse: 66 Resp: 18 Temp: 02 Sat: 100 ECG Mon: 4. Pain Intensity: 3 5. Fall Risk: Dizziness: N Needs help standing or walking: N Fallen in the last 3 months: N Fall risk comments: 6. Patient on Blood Thinner: None 7. History of Hypertension: N 8. Opioid Therapy greater than 6 weeks: Y Opiate Contract Signed: 12/14/15 9. Risk Assessment Tool Provided: LOW RISK 05/24 10. Functional Assessment Tool: 11. Recreational Drug Use: Never Drug Type: Tobacco Use: Never Smoker Tobacco Type: Amount or Packs/day: How Many Years: Alcohol Use: No Frequency: Quant:
--- NOTE | 2020-02-04 13:01 | HPC ---
[facility] [address] [place] [address] PAIN MANAGEMENT CONSULTATION Name: AMAURY OWENS Room #: REG [facility].#: [id number] Admission: 02/03/20 Attend Phys: Teri Ventura Discharge: Date of : 61 Report #: [id number] THIS REPORT FOR: cc: Carmine Lackey James L. DO Hocker,Teri ALLRED ~ CC: Amilcar Soares MD DATE OF SERVICE: 02/03/2020 CHIEF COMPLAINT: Low back pain, left lower extremity pain and paresthesias. HISTORY OF PRESENT ILLNESS: This is a 54-year-old female, who returns to the pain clinic today for refill of her opioid medications. She finds them beneficial in helping control her low back pain that does radiate into her left leg to her foot. She believes that it is about time to have an injection. At times, her left leg is very painful with increasing activity and walking. She has grandchildren living with her presently and she believes that she is more active since they are there and that has been increasing her pain, though today, she is rating the pain score of 3/10. It is an aching, numbness feeling. She believes that heat as well as walking and her medication is beneficial. Today, she is requesting refills of her medication prior to going on vacation and she is due to fill prior to leaving. She reports that she will schedule an epidural closer to the holiday season with Dr. Amilcar Soares since they are beneficial. ALLERGIES: CONTRAST DYE, MORPHINE. CURRENT MEDICATIONS: Prozac, oxycodone 7.5/325, calcium and multivitamin. PATIENT'S PQRS: 1. She has osteoarthritis in her lumbar spine. Denies any rheumatoid arthritis. 2. Height is 5 feet 6 inches, weight is 129, BMI is 21. Vital signs, 128/83, pulse is 66, respirations 18, oxygen sat is 100. 4. Pain score is 3/10. 5. Fall risk. Denies dizziness. Does not need help walking or standing. Has not fallen in the last 3 months. 6. The patient is not on any blood thinners or medicine for hypertension. Her opioid therapy is greater than 6 weeks; therefore, an opioid signed contract is on the chart. Risk assessment is low. Functional assessment is 34/70. 7. Recreational drug use, she denies. She is not a smoker and does not drink alcohol. According to the prescription monitoring system, there was a fill of some Tylenol with Codeine. The patient did not call and report. She states those were from her dentist for an abscessed tooth that she filled [address] [address] PAIN MANAGEMENT CONSULTATION Name: AMAURY OWENS Room #: REG [facility].Jeffy#: [id number] Admission: 02/03/20 Attend Phys: Teri Ventura Discharge: Date of : 61 Report #: [id number] As far as her medications, she is on time to fill her opioids from us today. There is a random drug screen that we checked at her last visit that is appropriate for her medications as well. PHYSICAL EXAMINATION: GENERAL: This is alert and orientated 54-year-old who appears younger than her stated age, placing her current pain score at 3/10. HEENT: Normocephalic, atraumatic. Extraocular eye muscles are intact. She is wearing a mask. MUSCULOSKELETAL: She has tenderness that radiates from her lumbosacral region down her left leg following the L3-L4 dermatomal distribution to her foot. Her lower extremity strength is symmetrical at 5/5 with good muscle strength and tone, and sensation is present from L1-S2. ASSESSMENT: 1. Symptomatic lumbar radiculopathy. 2. Lumbosacral spondylosis with radiculopathy. 3. Chronic intractable pain. 4. Opioid medication management under terms of written agreement. We reviewed the fact that opiate medications are being used to provide analgesia adequate to support activities of daily living, not attempting to achieve a specific pain score on the 0-10 Visual Analog Scale. The current opiate medications are providing sufficient analgesia to allow the patient to participate in activities of daily living. The patient is not exhibiting any aberrant behavior suggestive of drug diversion. The patient is not having any adverse reactions to medications. The patient is not suffering from daytime somnolence or mental acuity changes. The patient is managing opiate-induced constipation with appropriate obbg-qwo-aiwbbql agents and dietary considerations. The patient was counseled on concern for caution with operating a motor vehicle while using opiate medications. PLAN: 1. We discussed treatment options with the patient today. I explained to the patient that she is under opioid agreement with us that she is not to fill medications from other doctors or if she is given one, she is to call and notify our office. The patient verbalizes understanding that she will do that in the future, but hopefully she will not need to take any further medications for her oral issues. 2. We will have Dr. Amilcar Soares send her oxycodone 7.5/325, #90, for today for an 8-week supply. The patient finds these greatly beneficial in allowing her to be as active as possible at home and at work. 3. The patient and I discussed the possibility of an epidural steroid injection to be done prior to the end of the year. Her last transforaminal injection was in 08/2018 according to the records. The patient states she has been getting by through COVID though having periods of increased pain, but she will call for an [facility] [address] [place] [address] PAIN MANAGEMENT CONSULTATION Name: AMAURY OWENS Room #: [facility].#: [id number] Admission: 02/03/20 Attend Phys: Teri Ventura Discharge: Date of : 61 Report #: [id number] appointment before the end of the year. 4. The patient is seen today in collaboration with Dr. Amilcar Soares. <ELECTRONICALLY SIGNED> By: Teri Ventura 02/04/20 1301 1113 1420 Teri Ventura /nt
== END ==
LOC: PAIN 06:56
PROVIDERS: ATTEND Clinical Nurse Specialist Adult Health
DX: M79.605 Pain in left leg (principal); R20.2 Paresthesia of skin; M47.27 Other spondylosis with radiculopathy, lumbosacral region; G89.29 Other chronic pain; F11.20 Opioid dependence, uncomplicated; Z88.8 Allergy status to other drugs, medicaments and biological substances; Z79.899 Other long term (current) drug therapy

== ENCOUNTER → 2020-04-30 | Outpatient (CLI) | payer OTHER ==
[~2020-04-30] VITALS: Ht 167.6 cm; Wt 60.7 kg
[~2020-04-30] MED LIST changes: +MAGNESIUM250 M1 PO
[2020-04-30 09:29] VITALS: BP 112/71
--- NOTE | 2020-04-30 09:46 | NUR ---
Pain Clinic Assessment: 1. History of Osteoarthritis: LOWER LUMBAR History of Rheumatoid Arthritis: DENIES 2. Height: 5 ft. 6 in. 167.6 cm. Weight: 133.8 lb. oz. 60.691 kg. Patient's BMI: 21.6 3. Vital Signs: BP: 112/71 Pulse: 74 Resp: 14 Temp: 02 Sat: 100 ECG Mon: 4. Pain Intensity: 2 5. Fall Risk: Dizziness: N Needs help standing or walking: N Fallen in the last 3 months: N Fall risk comments: 6. Patient on Blood Thinner: None 7. History of Hypertension: N 8. Opioid Therapy greater than 6 weeks: Y Opiate Contract Signed: 12/14/15 9. Risk Assessment Tool Provided: LOW RISK 05/24 10. Functional Assessment Tool: 11. Recreational Drug Use: Never Drug Type: Tobacco Use: Never Smoker Tobacco Type: Amount or Packs/day: How Many Years: Alcohol Use: No Frequency: Quant:
--- NOTE | 2020-04-30 15:14 | HPC ---
[facility] [address] [place] [address] PAIN MANAGEMENT CONSULTATION Name: AMAURY OWENS Room #: REG [facility]#: [id number] Admission: 04/30/20 Attend Phys: Teri Ventura Discharge: Date of : 61 Report #: [id number] THIS REPORT FOR: cc: Carmine Lackey James L. DO Hocker,Teri ALLRED ~ DATE OF SERVICE: 04/30/2020 CHIEF COMPLAINT: Low back pain, left lower extremity pain and paresthesias. HISTORY OF PRESENT ILLNESS: This is a pleasant 55-year-old female who returns today for renewal of her oxycodone medication. Today, she is reporting a pain score of 2/10. Her pain is located in her lower back, but does radiate down the posterior left leg to her foot. She reports having increasing pain in her buttock and leg with increasing numbness and tingly sensations worse with standing and activity. She does believe that since her grandchildren and family is living with her currently, this has caused her to be more active, therefore she is having times with increasing pain. Overall, she believes that her pain medication has been beneficial and would like to continue this medication. The patient did report trying to wean off her medication since her last visit and found that she had significant increase in pain when she did wean off, which she did rather quickly, but did not experience any withdrawal symptoms. She then returned to her normal dosing on medicine. ALLERGIES: IV DYE AND MORPHINE. CURRENT LIST OF MEDICATIONS: Magnesium, oxycodone 7.5/325, Prozac, cranberry, and multivitamins. PQRS: 1. She has osteoarthritis of her lumbar spine. Denies any rheumatoid arthritis. 2. Height is 5 feet 6 inches, weight is 133, BMI is 21. 3. Vital signs 112/71, pulse is 74, respirations 14, oxygen sat is 100. 4. Pain score is 2. 5. Denies dizziness, does not need help walking or standing, has not fallen in the last 3 months. 6. The patient is not on any blood thinners or medicine for hypertension. Opioid therapy is greater than 6 weeks; therefore, an opioid signed contract is on the chart. Risk assessment is low. Functional assessment is 34/70. She denies recreational drug use or tobacco use. Does not drink alcohol. According to the prescription monitoring system, the patient is due to fill her medications this weekend, filling them in a timely fashion. Her morphine milliequivalent is 34 MME per day. There is a recent drug screen on the chart that is appropriate as well. [address] [address] PAIN MANAGEMENT CONSULTATION Name: AMAURY OWENS Room #: REG Dylan Zepeda#: [id number] Admission: 04/30/20 Attend Phys: Teri Ventura Discharge: Date of : 61 Report #: [id number] PHYSICAL EXAMINATION: GENERAL: This is alert and orientated, well-developed, well-nourished 55-year-old who appears younger than her stated age, placing her current pain score at 2/10. HEENT: Normocephalic, atraumatic. Extraocular eye muscles are intact. She is wearing a mask. MUSCULOSKELETAL: She has tenderness in the lumbosacral region that does radiate down her left leg following the L3-L4 dermatomal distribution with increasing numbness. Her lower extremity strength is symmetrical with good sensation from L1-S2. ASSESSMENT: 1. Symptomatic lumbar radiculopathy. 2. Lumbosacral spondylosis with radiculopathy. 3. Chronic intractable pain. 4. Opioid medication management under terms of written agreement. We reviewed the fact that opiate medications are being used to provide analgesia adequate to support activities of daily living, not attempting to achieve a specific pain score on the 0-10 Visual Analog Scale. The current opiate medications are providing sufficient analgesia to allow the patient to participate in activities of daily living. The patient is not exhibiting any aberrant behavior suggestive of drug diversion. The patient is not having any adverse reactions to medications. The patient is not suffering from daytime somnolence or mental acuity changes. The patient is managing opiate-induced constipation with appropriate emnu-mmi-gkosrkh agents and dietary considerations. The patient was counseled on concern for caution with operating a motor vehicle while using opiate medications. A physical exam was performed and the patient's functional status was evaluated. All patients with back pain were advised against the bed rest greater than 4 days and were advised to return to normal activities. Pain score assessment was noted and the treatment plan was reviewed with the patient. All current medications, both prescribed and OTC were reviewed and reconciled on the electronic medical record. Tobacco screening was accomplished and smoking cessation was advised when indicated. BMI was noted and diet/exercise modification was recommended for all patients following outside normal parameters. I reviewed with the patient today their responsibilities to safeguard prescription medications, reviewed their responsibility to utilize medications only as prescribed by the physician. They are to seek and receive pain medications only from 1 physician group ([facility]). They are to use 1 pharmacy and keep the clinic informed if they change pharmacies. Their responsibilities include making followup visits in a timely fashion and to avoid [address] [address] PAIN MANAGEMENT CONSULTATION Name: AMAURY OWENS Room #: REG [facility]#: [id number] Admission: 04/30/20 Attend Phys: Teri Ventura Discharge: Date of : 61 Report #: [id number] abrupt discontinuation of medication usage. Their responsibilities further include bringing their medications (bottles from the pharmacy with residual pills) to the visit for possible confirmation of pill counts and the patient understands it is their responsibility to submit to random drug screens to ensure both that the medications prescribed are present, and that no other controlled substances are present. All prescriptions provided today were generated electronically. PLAN: 1. We discussed treatment options with the patient today. The patient did try to decrease her medications and wean off, she did have significant increase in pain. We briefly discussed in the future if she would like to taper her medications, we would do it slowly and discussed how we would do that. The patient realizes how dependent she is on the medication and would like to continue at her current rate. Scripts will be sent electronically by Dr. Stapleton for oxycodone 7.5/325, #90, for today for an 8-week supply. 2. We did discuss an epidural steroid injection. The patient is trying to hold off until August that would been a year since her last injection. We discussed quality of life and increasing pain and unable to do things she enjoys with her increasing pain. 3. The patient is seen in collaboration with Dr. Stapleton today. She does not experience any side effects of constipation or daytime somnolence and we will have him resend her medications. He is covering for Dr. Soares. <ELECTRONICALLY SIGNED> By: Teri Ventura 04/30/20 1514 1010 1239 Teri Ventura /nt
== END ==
LOC: PAIN 06:53
PROVIDERS: ATTEND Clinical Nurse Specialist Adult Health
DX: M47.26 Other spondylosis with radiculopathy, lumbar region (principal); G89.4 Chronic pain syndrome; Z79.891 Long term (current) use of opiate analgesic

== ENCOUNTER → 2020-07-27 | Outpatient (CLI) | payer OTHER ==
[~2020-07-27] VITALS: Ht 167.6 cm; Wt 61.8 kg
[2020-07-27 13:10] VITALS: BP 114/66
--- NOTE | 2020-07-27 13:31 | NUR ---
Pain Clinic Assessment: 1. History of Osteoarthritis: LOWER LUMBAR History of Rheumatoid Arthritis: DENIES 2. Height: 5 ft. 6 in. 167.6 cm. Weight: 136.2 lb. oz. 61.780 kg. Patient's BMI: 22.0 3. Vital Signs: BP: 114/66 Pulse: 80 Resp: 14 Temp: 02 Sat: 100 ECG Mon: 4. Pain Intensity: 2 5. Fall Risk: Dizziness: N Needs help standing or walking: N Fallen in the last 3 months: N Fall risk comments: 6. Patient on Blood Thinner: None 7. History of Hypertension: N 8. Opioid Therapy greater than 6 weeks: Y Opiate Contract Signed: 12/14/15 9. Risk Assessment Tool Provided: LOW RISK 1 10. Functional Assessment Tool: 11. Recreational Drug Use: Never Drug Type: Tobacco Use: Never Smoker Tobacco Type: Amount or Packs/day: How Many Years: Alcohol Use: No Frequency: Quant:
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
== END ==
LOC: PAIN 06:52
PROVIDERS: ATTEND Clinical Nurse Specialist Adult Health
DX: M47.27 Other spondylosis with radiculopathy, lumbosacral region (principal); M79.605 Pain in left leg; R20.2 Paresthesia of skin; G89.29 Other chronic pain; F11.20 Opioid dependence, uncomplicated; Z88.8 Allergy status to other drugs, medicaments and biological substances; Z79.899 Other long term (current) drug therapy

== ENCOUNTER → 2020-10-13 | Outpatient (CLI) | payer OTHER ==
[~2020-10-13] VITALS: Ht 167.6 cm; Wt 61.5 kg
[2020-10-13 12:40] VITALS: BP 97/67
--- NOTE | 2020-10-13 12:50 | NUR ---
Pain Clinic Assessment: 1. History of Osteoarthritis: LOWER LUMBAR History of Rheumatoid Arthritis: DENIES 2. Height: 5 ft. 6 in. 167.6 cm. Weight: 135.6 lb. oz. 61.508 kg. Patient's BMI: 21.9 3. Vital Signs: BP: 97/67 Pulse: 71 Resp: 14 Temp: 02 Sat: 100 ECG Mon: 4. Pain Intensity: 2 5. Fall Risk: Dizziness: N Needs help standing or walking: N Fallen in the last 3 months: N Fall risk comments: 6. Patient on Blood Thinner: None 7. History of Hypertension: N 8. Opioid Therapy greater than 6 weeks: Y Opiate Contract Signed: 12/14/15 9. Risk Assessment Tool Provided: LOW RISK 1 10. Functional Assessment Tool: 11. Recreational Drug Use: Never Drug Type: Tobacco Use: Never Smoker Tobacco Type: Amount or Packs/day: How Many Years: Alcohol Use: No Frequency: Quant:
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
== END ==
LOC: PAIN 08:51
PROVIDERS: ATTEND Clinical Nurse Specialist Adult Health
DX: M47.27 Other spondylosis with radiculopathy, lumbosacral region (principal); G89.4 Chronic pain syndrome; Z79.891 Long term (current) use of opiate analgesic; Z79.899 Other long term (current) drug therapy

== ENCOUNTER → 2021-01-05 | Outpatient (CLI) | payer OTHER ==
[~2021-01-05] VITALS: Ht 167.6 cm; Wt 60.4 kg
[~2021-01-05] MED LIST changes: +ZINC50 M2 PO
[2021-01-05 08:31] VITALS: BP 106/73
--- NOTE | 2021-01-05 08:42 | NUR ---
Pain Clinic Assessment: 1. History of Osteoarthritis: LOWER LUMBAR History of Rheumatoid Arthritis: DENIES 2. Height: 5 ft. 6 in. 167.6 cm. Weight: 133.2 lb. oz. 60.419 kg. Patient's BMI: 21.5 3. Vital Signs: BP: 106/73 Pulse: 82 Resp: 14 Temp: 02 Sat: 100 ECG Mon: 4. Pain Intensity: 5 5. Fall Risk: Dizziness: N Needs help standing or walking: N Fallen in the last 3 months: N Fall risk comments: 6. Patient on Blood Thinner: None 7. History of Hypertension: N 8. Opioid Therapy greater than 6 weeks: Y Opiate Contract Signed: 01/05/21 9. Risk Assessment Tool Provided: LOW RISK 1 10. Functional Assessment Tool: 11. Recreational Drug Use: Never Drug Type: Tobacco Use: Never Smoker Tobacco Type: Amount or Packs/day: How Many Years: Alcohol Use: No Frequency: Quant:
== END ==
LOC: PAIN 11-05 08:50
PROVIDERS: ATTEND Clinical Nurse Specialist Adult Health
DX: M47.26 Other spondylosis with radiculopathy, lumbar region (principal); G89.4 Chronic pain syndrome; Z79.891 Long term (current) use of opiate analgesic; Z79.899 Other long term (current) drug therapy

== ENCOUNTER → 2021-01-14 | Outpatient (CLI) | payer OTHER ==
[~2021-01-14] VITALS: Ht 167.6 cm; Wt 60.3 kg
[2021-01-14 12:50] VITALS: BP 114/69
--- NOTE | 2021-01-14 13:13 | NUR ---
Pain Clinic Assessment: 1. History of Osteoarthritis: LOWER LUMBAR History of Rheumatoid Arthritis: DENIES 2. Height: 5 ft. 6 in. 167.6 cm. Weight: 133.0 lb. oz. 60.328 kg. Patient's BMI: 21.5 3. Vital Signs: BP: 114/69 Pulse: 73 Resp: 14 Temp: 02 Sat: 100 ECG Mon: 4. Pain Intensity: 2 5. Fall Risk: Dizziness: N Needs help standing or walking: N Fallen in the last 3 months: N Fall risk comments: \ 6. Patient on Blood Thinner: None 7. History of Hypertension: N 8. Opioid Therapy greater than 6 weeks: Y Opiate Contract Signed: 01/05/21 9. Risk Assessment Tool Provided: LOW RISK 1 10. Functional Assessment Tool: 11. Recreational Drug Use: Never Drug Type: Tobacco Use: Never Smoker Tobacco Type: Amount or Packs/day: How Many Years: Alcohol Use: No Frequency: Quant:
== END | disposition home or self-care (01) ==
LOC: PAIN 08:05
PROVIDERS: ATTEND Anesthesiology Pain Medicine
DX: M54.16 Radiculopathy, lumbar region (principal); G89.29 Other chronic pain; Z98.890 Other specified postprocedural states; Z79.899 Other long term (current) drug therapy; Z91.041 Radiographic dye allergy status; Z88.8 Allergy status to other drugs, medicaments and biological substances

== ENCOUNTER → 2021-04-26 | Outpatient (CLI) | payer OTHER ==
[~2021-04-26] VITALS: Ht 165.1 cm; Wt 60.1 kg
[2021-04-26 08:45] VITALS: BP 124/65
--- NOTE | 2021-04-26 08:54 | NUR ---
Pain Clinic Assessment: 1. History of Osteoarthritis: LOWER LUMBAR History of Rheumatoid Arthritis: DENIES 2. Height: 5 ft. 5 in. 165.1 cm. Weight: 132.6 lb. oz. 60.147 kg. Patient's BMI: 22.1 3. Vital Signs: BP: 124/65 Pulse: 71 Resp: 14 Temp: 02 Sat: 100 ECG Mon: 4. Pain Intensity: 2 5. Fall Risk: Dizziness: N Needs help standing or walking: N Fallen in the last 3 months: N Fall risk comments: \ 6. Patient on Blood Thinner: None 7. History of Hypertension: N 8. Opioid Therapy greater than 6 weeks: Y Opiate Contract Signed: 01/05/21 9. Risk Assessment Tool Provided: LOW RISK 1 10. Functional Assessment Tool: 11. Recreational Drug Use: Never Drug Type: Tobacco Use: Never Smoker Tobacco Type: Amount or Packs/day: How Many Years: Alcohol Use: No Frequency: Quant:
== END ==
LOC: PAIN 07:51 → SJCVCIMAG 08:06
PROVIDERS: ATTEND Clinical Nurse Specialist Adult Health
DX: M47.27 Other spondylosis with radiculopathy, lumbosacral region (principal); G89.29 Other chronic pain; Z88.8 Allergy status to other drugs, medicaments and biological substances; Z79.899 Other long term (current) drug therapy

== ENCOUNTER → 2021-04-26 | Outpatient (CLI) | payer OTHER | LOC: CAT 09:14 | PROVIDERS: ATTEND Family Medicine | DX: Z13.6 Encounter for screening for cardiovascular disorders (principal) ==